=== PATIENT | male | born 1995 | race Caucasian/White ===

== ENCOUNTER 2020-01-01 13:00 | Emergency (ER) | payer OTHER, SELFPAY ==
[~2020-01-01] VITALS: Ht 185.4 cm; Wt 75.0 kg
[2020-01-01 13:05] VITALS: BP 139/81
== END 2020-01-01 13:50 | disposition home or self-care (01) ==
LOC: EMS 13:00
DX: J02.9 Acute pharyngitis, unspecified (principal); R03.0 Elevated blood-pressure reading, without diagnosis of hypertension; Z20.828 Contact with and (suspected) exposure to other viral communicable diseases
CPT/HCPCS: 99283; U0003